=== PATIENT | female | born 2000 | race Two or more races ===

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

== ENCOUNTER 2024-08-23 15:22 | Emergency (ER) | payer MEDICAID, OTHER ==
[~2024-08-23] VITALS: Ht 147.3 cm; Wt 45.4 kg
[2024-08-23] MEDS ORDERED: ONDANSETRON HCL/PF 4 MG/2 ML VIAL ONE (16:08)
[2024-08-23] MEDS ORDERED: ACETAMINOPHEN ES 500 MG TABLET ONE (16:08)
[2024-08-23] MEDS: IV NS 0.9% 1,000 ML BAG IV ONE (16:20)
[2024-08-23] MEDS: ACETAMINOPHEN ES 500 MG TABLET PO ONE (16:21)
[2024-08-23] MEDS: ONDANSETRON HCL/PF 4 MG/2 ML VIAL IVP ONE (16:21)
[2024-08-23 16:26] LABS: PLATELET COUNT (AUTO) 177 K/uL (150-450); RED BLOOD CELL COUNT(AUTO) 4.54 MIL/uL (4.0-5.2); RED CELL DISTRIBUTION WIDTH 13.3 % (11.5-15.0); WHITE BLOOD COUNT (AUTO) 6.8 K/uL (4.3-11.0)
[2024-08-23 16:35] LABS: CALCIUM, SERUM 8.7 mg/dL (8.5-10.1); CREATININE 0.4 mg/dL (0.6-1.3); SODIUM SERUM 138.0 mmol/L (136-145); UREA NITROGEN, BLOOD 7.0 mg/dL (7-18)
[2024-08-23 16:40] LABS: ASPARTATE AMINOTRANSFERASE 6.0 U/L (15-37); TOTAL PROTEIN, SERUM 7.3 g/dL (6.4-8.2)
[2024-08-23 16:48] LABS: APPEARANCE,URINE CLEAR (CLEAR); BLOOD, URINE TRACE-INTA Ery/uL (NEGATIVE); LEUKOCYTE ESTERASE ,URINE NEGATIVE (NEGATIVE); NITRITE, URINE NEGATIVE (NEGATIVE); UGLUCOSE NEGATIVE (NEGATIVE)
[2024-08-23 17:24] LABS: SQUAMOUS EPITHELIAL CELL,UR Moderate /HPF (None Seen)
[2024-08-23 17:25] LABS: ADD URINE CULTURE YES
[2024-08-23] MEDS ORDERED: ONDA4TAB5 PO (17:34)
[2024-08-23 17:58] VITALS: BP 115/60; TEMP 98.5; O2SAT 99
== END 2024-08-23 17:59 | disposition home or self-care (01) ==
LOC: ER 15:22
DX: R19.7 Diarrhea, unspecified (principal); R11.0 Nausea; R51.9 Headache, unspecified; R10.10 Upper abdominal pain, unspecified; R07.89 Other chest pain
CPT/HCPCS: 99283; 96374; 96361; 85025; 80048; 87086; 83690; 80076; 84703; 81001; 36415; J2405; J7030